=== PATIENT | female | born 1930 ===

== ENCOUNTER 2018-02-20 12:23 | Inpatient (IN) | payer SELFPAY ==
[2018-02-20] MEDS ORDERED: Lidocaine 1% w/Epinephrine 1:100K 20 ML VIAL ONE (12:27)
[2018-02-20 12:57] LABS: #Lymphocytes 0.9 thou/uL (1.20-3.40); #Monocytes 0.3 thou/uL (0.11-0.59); #Neutrophils 4.6 thou/uL (1.40-6.50); %Basophils 0.6 % (0.0-1.0); %Eosinophils 0.4 % (0.0-10.0); %Lymphocytes 15.8 % (21.0-51.0); %Monocytes 4.9 % (0.0-10.0); %Neutrophils 78.3 % (42.0-75.0); Hemoglobin 9.6 g/dL (12.0-16.0); Mean Corpuscular HGB CONC 32.2 g/dL (32.0-36.0); Mean Corpuscular Hemoglobin 29.3 pg (27.0-31.0); Mean Corpuscular Volume 91.2 fL (78.0-98.0); Mean Platelet Volume 7.1 fL (7.4-10.4); Platelet Count 294 thou/uL (130-400); RBC Distribution Width 16.2 % (11.5-14.5); Red Blood Cell (RBC) Count 3.27 mill/uL (4.20-5.40); White Blood Cell (WBC) Count 5.8 thou/uL (4.8-10.8)
[2018-02-20 12:58] LABS: INR-International Normal Ratio 3.9; Prothrombin Time 37.8 SEC (12.0-14.7)
[2018-02-20 13:05] LABS: ALT (SGPT) 14 U/L (8-55); AST (SGOT) 15 U/L (5-34); Albumin 3.9 g/dL (3.4-4.8); Alkaline Phosphatase 63 U/L (40-150); Anion Gap 14 mmol/L (10-20); BUN (Urea Nitrogen) 22 mg/dL (9.8-20.1); Bilirubin, Total 0.7 mg/dL (0.2-1.2); Calc. Creatinine Clearance 0 mL/min (70-130); Calcium 9.4 mg/dL (7.8-10.44); Carbon Dioxide 19 mmol/L (23-31); Chloride 108 mmol/L (98-107); Estimated GFR-MDRD 29; Globulin 2.7 g/dL (2.4-3.5); Glucose 151 mg/dL (83-110); Protein, Total 6.6 g/dL (6.0-8.3); Sodium 137 mmol/L (136-145)
--- NOTE | 2018-02-20 13:30 | RAD ---
AP PELVIS: Date: 02/20/18 HISTORY: Trauma. Pelvic pain, hip pain. FINDINGS/IMPRESSION: No definite fracture or dislocation is seen. Soft tissue calcifications are noted. IF there is high clinical suspicion for fracture, further evaluation with CT scan should be performed . POS: [facility]
--- NOTE | 2018-02-20 13:31 | RAD ---
PORTABLE CHEST 1 VIEW: Date: 02/20/18 Time: 1157 hours HISTORY: Trauma, chest pain. FINDINGS: The heart is enlarged. Aorta is tortuous. Left-sided pacemaker device is present. The lungs are well expanded without lobar consolidation, pneumothoraces, sylvia pulmonary edema, or pleural effusions. IMPRESSION: Cardiomegaly. POS: [facility]
--- NOTE | 2018-02-20 13:53 | CT ---
CT BRAIN WITHOUT CONTRAST: Date: 02/20/18 HISTORY: Level I trauma, unwitnessed fall, large head laceration. FINDINGS: There are changes of cortical atrophy and chronic small vessel ischemic disease. There is asymmetric prominent dilatation of the left lateral ventricle, particularly the occipital horn, likely due to ad jacent cortical volume loss. No evidence of acute infarct, hemorrhage, midline shift, or abnormal ext ra-axial fluid collections are seen. The bony calvarium is intact. There is a scalp contusion in the right frontal region. IMPRESSION: No CT evidence of acute intracranial process. Report called over the telephone to ER physician, Dr. Jameson Nath, at 1311 hours. CODE CR. POS: [facility]
--- NOTE | 2018-02-20 13:56 | CT ---
CT CERVICAL SPINE WITH CORONAL AND SAGITTAL REFORMATIONS: Date: 02/20/18 HISTORY: Level I trauma, unwitnessed fall, neck pain. FINDINGS: Extensive degenerative changes are seen in the cervical spine. There is loss of cervical lordosis. No acute fracture is seen. There is minimal anterolisthesis of C4 over C5, likely degenerative. No face t malalignment is identified. There is mild anterior wedging of the superior end plate of T1 vertebral body. Findings discussed over the telephone with ER physician, Dr. Jameson Nath, at 1317 hours. CODE CR. POS: [facility]
--- NOTE | 2018-02-20 15:31 | PDOC.FPRHP ---
- History of Present Illness Chief Complaint: fall History of Present Illness: 87 yo AAF with unknown PMH presents after a reported ground level fall while at home earlier today. There is no family at bedside during interview. Pt reports that she lives at home in [place], [place], with her daughter and was standing around her kitchen today when she fell and hit her head. She denies LOC but is unsure what caused her to fall. She states her nephew was home at the time and immediately rushed to help her up and hold pressure to her head. EMS was called and eventually the pt was sent via [facility] to higher level of care. Per EMS report, pt had significant laceration to right frontotemporal scalp with unspecified amount of blood at the scene. EMS also reports some type of apneic or seizure like activity while in flight nearly requiring intubation. The patient, however, reportedly became coherent and back to baseline just prior to intubation. The patient denies any complaints or concerns and specifically denies recent fevers/chills, BINGHAM, dizziness, weakness, change in vision, cough, SOB, CP, palpitations, or NVD. Her only complaint is that she has fungus on her feet. On arrival to the ED, level 1 trauma was activated. ED Course: Level 1 trauma was activated and pt was evaluated by Dr. Nath. CT cervical spine, CT brain, pelvis XR, and CXR were all negative for acute findings. The patient was given 2 L of NS and Tdap. - Allergies/Adverse Reactions Allergies Allergy/AdvReac Type Severity Reaction Status Date / Time No Allergy Information Allergy Unverified 02/20/18 15:33 Available - Home Medications Medication Instructions Recorded Confirmed Type Unobtainable [Unobtainable] 02/20/18 02/20/18 History Comments: Pt is unable to recall her medications at this time and no family is at bedside. - History PMHx: Unknown. Pt has Pacemaker. PSHx: Unknown, pacemaker placement FHx: Unknown Social: Pt is and lives at home with her daughter in [place], [place]. - Review of Systems General: denies: fever/chills Eyes: denies: vision changes Respiratory: denies: cough, shortness of breath Cardiovascular: denies: chest pain, palpitation Gastrointestinal: denies: nausea, vomiting, diarrhea Skin: reports: other (foot fungus) Musculoskeletal: denies: pain Neurological: denies: syncope, weakness - Vital signs BP: 112/71 HR: 74 paced RR: 20 Tmax: 98.6 oral Pox: 100% on 2L NC Wt: 64kg - Physical Exam Constitutional: NAD, other (A&O x1-2 during interview) HEENT: PERRLA, EOMI, conjunctiva clear, no scleral icterus, other (3x3cm area of ecchymosis s/p lac repair on right frontotemporal scalp) Neck: no bruits Chest: no-tender to palpation Heart: RRR, normal S1/S2 Lungs: CTAB, no respiratory distress, no wheezing Abdomen: soft, non-tender Musculoskeletal: normal structure Neurological: no focal deficit, CN II-XII intact, other (presbycusis) Skin: capillary refill <2 seconds, other (tinea pedis) Heme/Lymphatic: other (frontotemporal ecchymosis) FMR H&P: Results - Labs Result Diagrams: 02/20/18 12:45 02/20/18 12:45 Lab results: WBC 5.8 thou/uL (4.8-10.8) 02/20/18 12:45 Hgb 9.6 g/dL (12.0-16.0) L 02/20/18 12:45 Hct 29.9 % (36.0-47.0) L 02/20/18 12:45 MCV 91.2 fL (78.0-98.0) 02/20/18 12:45 Plt Count 294 thou/uL (130-400) 02/20/18 12:45 Neutrophils % 78.3 % (42.0-75.0) H 02/20/18 12:45 Sodium 137 mmol/L (136-145) 02/20/18 12:45 Potassium 4.0 mmol/L (3.5-5.1) 02/20/18 12:45 Chloride 108 mmol/L (98-107) H 02/20/18 12:45 Carbon Dioxide 19 mmol/L (23-31) L 02/20/18 12:45 BUN 22 mg/dL (9.8-20.1) H 02/20/18 12:45 Creatinine 1.65 mg/dL (0.6-1.1) H 02/20/18 12:45 Glucose 151 mg/dL (83-110) H 02/20/18 12:45 Lactic Acid 2.5 mmol/L (0.5-2.2) H 02/20/18 12:45 Calcium 9.4 mg/dL (7.8-10.44) 02/20/18 12:45 Total Bilirubin 0.7 mg/dL (0.2-1.2) 02/20/18 12:45 AST 15 U/L (5-34) 02/20/18 12:45 ALT 14 U/L (8-55) 02/20/18 12:45 Alkaline Phosphatase 63 U/L (40-150) 02/20/18 12:45 Serum Total Protein 6.6 g/dL (6.0-8.3) 02/20/18 12:45 Albumin 3.9 g/dL (3.4-4.8) 02/20/18 12:45 - EKG Interpretation EKG: Electronically paced, rate 71. No ST changes. QT 440. - Radiology Interpretation CT scan - head Status: report reviewed by me (No acute process. Chronic atrophy and microvascular changes.) Chest x-ray Status: image reviewed by me, report reviewed by me Additional comment: No acute process. Other Status: report reviewed by me Additional comment: CT C spine and pelvis XR negative for acute fracture. FMR H&P: A/P - Problem List (1) Normocytic anemia due to blood loss Current Visit: Yes Status: Acute Code(s): D50.0 - IRON DEFICIENCY ANEMIA SECONDARY TO BLOOD LOSS (CHRONIC) (2) Hypotension due to blood loss Current Visit: Yes Status: Acute Code(s): I95.89 - OTHER HYPOTENSION (3) Supratherapeutic INR Current Visit: Yes Status: Acute Code(s): R79.1 - ABNORMAL COAGULATION PROFILE (4) Superficial laceration of scalp Current Visit: Yes Status: Acute Code(s): S01.01XA - LACERATION WITHOUT FOREIGN BODY OF SCALP, INITIAL ENCOUNTER (5) Kidney injury Current Visit: Yes Status: Acute Code(s): S37.009A - UNSPECIFIED INJURY OF UNSPECIFIED KIDNEY, INITIAL ENCOUNTER (6) Hyperchloremic metabolic acidosis Current Visit: Yes Status: Acute Code(s): E87.2 - ACIDOSIS (7) Tinea pedis Current Visit: Yes Status: Acute Code(s): B35.3 - TINEA PEDIS (8) Pacemaker Current Visit: Yes Status: Acute Code(s): Z95.0 - PRESENCE OF CARDIAC PACEMAKER - Plan 1. Normocytic blood loss anemia 2/2 unwitnessed ground level fall and frontotemporal scalp laceration - No family at bedside at the time of exam but patient reports no LOC with ground level fall. Pt had superficial laceration repair in ED with adequate hemostasis. Trauma work up negative but patient found to have hemoglobin of 9.6. With unclear PMH and no previous hospitalizations or lab work for reference , will treat patient as blood loss anemia. - Obtain repeat H/H in 4 hours and closely monitor vital signs. Patient has been hypoTN, as low as 80/60, but currently resolved. Patient is s/p [address] on maintenance fluids with LR @ 100. Patient has been type and screened. Consider transfusion if patient bleeds or deteriorates. - Hold anticoagulation and repeat coagulation panel in AM. - Patient's history is unknown at this time but, per ER staff, family to return to hospital. No phone number available at time of interview. 2. HypoTN likely secondary to #1 - Resolved at this time, continue to monitor with maintenance fluids. 3. Supratherapeutic INR - Hold anticoagulation and monitor INR. Consider administration of vitamin K if patient worsens. 4. CASSY vs CKD - Unclear baseline. IVF. Repeat BMP in AM. 5. Hyperchloremic non-anion gap metabolic acidosis - Switch IVF to LR. 6. Tinea pedis - Topical ketoconazole. 7. Pacemaker in place. CODE STATUS: DNI. PPx: SCDs for VTE. No GI ppx indicated at this time. Disposition/LOS: Admit to [facility] under inpatient status for anticipated length of stay >2 midnights.
--- NOTE | 2018-02-20 16:15 | HP ---
HISTORY OF PRESENT ILLNESS: I have examined the patient. I have discussed the case with Dr. Brooks colvin and agree with his assessment and plan. Briefly, Ms. Samson is a pleasant, elderly, 87-year-old black female patient, who arrived to our ER approximately 2 hours ago. Evidently, she had fallen at home and struck her right yarsani. There wa s no loss of consciousness according to the patient and no syncope. She, however, bled profusely at the scene of the accident. She was subsequently transferred from [place], [place], to [facility]. She has had a head and neck CT and no evidence of intracranial bleed or neck fracture. PHYSICAL EXAMINATION: GENERAL: The patient, on my exam, is awake, alert, though confused. She does refer appropriately to the year is 2017 and she does know her name. She, however, does not know where she is and that she states she is in [place], [place]. HEENT: Head: There is a sutured laceration of the right yarsani. It measures approximately 2 cm. I t is oozing, but not bleeding profusely. There is not a large hematoma overlying the area. Her extr aocular movements are normal. Her pupils are round and reactive to light. Her conjunctivae are pale . Throat: No erythema or exudate. NECK: Supple. CARDIAC: The PMI is displaced laterally. Heart sounds are distant. LUNGS: Breath sounds are distant, but clear. No rales, rhonchi, or wheezes. She is in no respirato ry distress. ABDOMEN: Flat and soft. She seems to be able to move all extremities without any evidence of focal deficits. LABORATORY STUDIES: Pending. ASSESSMENT: Fall with head trauma and laceration. COMMENT: She was noted to have an elevated PT/INR on admission. Unfortunately, she does not know an d we do not know what medication she is taking. In the event, the bleeding from her scalp laceration seems to be controlled and there is at least at this time no indication for a vitamin K or fresh fro willie plasma. This situation will be monitored, of course, closely with serial H and Hs every 4 hours over the next several hours. She had initially become hypotensive in the ER, but responded well to b olus of fluids and her current systolic blood pressure is 110. PLAN: Admit to MICU. Monitor serial H and Hs. Monitor vital signs and volume status. Give FFP and vitamin K or 4-factor PCC if bleeding profusely reemergence.
[2018-02-20 16:35] LABS: Hemoglobin 7.7 g/dL (12.0-16.0)
[2018-02-20 16:50] LABS: Lactic Acid 1.4 mmol/L (0.5-2.2)
[2018-02-20] MEDS ORDERED: Ondansetron ODT 4 MG TAB PO PRN (17:15)
[2018-02-20 18:21] VITALS: BMI 22.2
[2018-02-20] MEDS: Acetaminophen 325 MG TAB PO PRN (19:22)
[2018-02-20] MEDS: Lactated Ringer's 1,000 ML IV SCH (19:22)
[2018-02-20 20:30] LABS: Hemoglobin 7.6 g/dL (12.0-16.0)
--- NOTE | 2018-02-20 23:04 | HP ---
HISTORY OF PRESENT ILLNESS: Amrita Samson is an 87-year-old female, who was flown [facility] as a l evel 1 trauma patient. I respond to a level 1 trauma activation providing critical care for the [facility] room stay. On arrival, by report, the patient was hypotensive, bleeding from a scalp laceratio n, intubated. On arrival, the patient was not intubated. The patient was mentating normally, talkin g normally, blood pressure was 100. En route, her blood pressure was reported to be in the 80s, and she was given TXA. On arrival, she had humerus. IV access could not be established, but as stated a negrito, the patient was alert and oriented. GCS 15. Mentating normally. Following commands. [facility] and blood pressure was intermittently systolic 90 to 100. PHYSICAL EXAMINATION: LUNGS: Clear to auscultation. CARDIAC: Regular rate and rhythm without murmur or gallop. ABDOMEN: Soft, nontender. PELVIS: Stable. EXTREMITIES: Mobile hips, knees, and ankles without deformity or pain. Palpable pedal pulses. No a nkle edema. Upper extremities are mobile without evidence of trauma. CHEST: Chest wall without trauma. NECK: Cervical spine collar in place. Cervical spine, nontender. Trachea midline. NEUROLOGIC: Cranial nerves II-XII intact, neurologically intact. No focal deficit. HEENT: Pupils equally round, and reactive to light. LABORATORY DATA AND X-RAY FINDINGS: Chest x-ray was done, it was normal. EKG done, normal. CT scan of the head and neck were normal. X-ray of her pelvis was normal. The patient had on exam a lacera tion of her right forehead with a small arterial bleeder. This laceration was irregular and about 3 cm. Betadine prep was used, and one of the physicians closed this under local anesthetic after Betad ine prep. White count 5, hemoglobin 9.6. Sodium 137, potassium 4.0, chloride 108, carbon dioxide 19 , BUN 22, creatinine 1.65. No other studies to compare to. ALLERGIES: None. TOBACCO: None. ALCOHOL: None. HOME MEDICATIONS: Not available. The patient gives a history of having had a seizure years past, but she cannot recall when. Patient has a pacemaker in left chest. PT is 37. INR 3.9. ASSESSMENT AND PLAN: 1. Acute kidney injury versus chronic kidney disease. 2. Coronary artery disease with pacemaker, history unknown at this time. 3. Patient fell at home in her kitchen and is not amnestic for the event and has a laceration over h er forehead. Her hemoglobin is 9 without records of prior hemoglobin. The patient is stable from a trauma standpoint, no evident traumatic injury. Patient can be admitted to the Medical Service for e valuation. 4. INR elevated. Medication list not available, but suppose that she is on Coumadin treatment per m edical. A 35 minutes spent with this patient with acute care, and Medical Service will assume her care.
[2018-02-21 04:46] LABS: #Eosinphils 0.1 thou/uL (0.0-0.7); #Lymphocytes 1.5 thou/uL (1.20-3.40); #Monocytes 0.7 thou/uL (0.11-0.59); #Neutrophils 4.2 thou/uL (1.40-6.50); %Basophils 0.1 % (0.0-1.0); %Lymphocytes 23.4 % (21.0-51.0); %Neutrophils 65.5 % (42.0-75.0); Hemoglobin 7.8 g/dL (12.0-16.0); Mean Corpuscular HGB CONC 32.9 g/dL (32.0-36.0); Mean Corpuscular Volume 91.1 fL (78.0-98.0); Platelet Count 257 thou/uL (130-400); RBC Distribution Width 15.8 % (11.5-14.5); Red Blood Cell (RBC) Count 2.59 mill/uL (4.20-5.40); White Blood Cell (WBC) Count 6.4 thou/uL (4.8-10.8)
[2018-02-21 04:51] LABS: INR-International Normal Ratio 1.7; Prothrombin Time 20.4 SEC (12.0-14.7)
[2018-02-21 04:52] LABS: PTT 41.7 SEC (22.9-36.1)
[2018-02-21 05:07] LABS: Anion Gap 13 mmol/L (10-20); BUN (Urea Nitrogen) 16 mg/dL (9.8-20.1); Calc. Creatinine Clearance 40 mL/min (70-130); Calcium 8.9 mg/dL (7.8-10.44); Carbon Dioxide 19 mmol/L (23-31); Chloride 113 mmol/L (98-107); Estimated GFR-MDRD 57; Glucose 98 mg/dL (83-110); Potassium 3.7 mmol/L (3.5-5.1); Sodium 141 mmol/L (136-145)
[2018-02-21] MEDS: Lactated Ringer's 1,000 ML IV SCH (05:35)
--- NOTE | 2018-02-21 06:22 | PDOC.FM ---
- Subjective Subjective: 87 yo female seen this AM. Patient is A&O x4 and pleasant. Family is not present at time of interview. She states that she remembers she fell yesterday. She states that her head is sore over her laceration repair. She denies any chest pain, sob, vision changes, unilateral weakness, n/v/d, fevers, chills, or coughs. She states that she has no problems. No other complaints today. - Objective Vital Signs & Weight: Vital Signs (12 hours) Temp Pulse Resp BP Pulse Ox 02/21/18 03:00 98.0 F 76 18 166/69 H 100 02/20/18 23:00 98.2 F 72 18 160/70 H 98 02/20/18 20:00 98.0 F 70 18 95 02/20/18 19:00 98.0 F 70 18 139/58 L 95 Weight Weight 60.47 kg I&O: 02/19/18 02/20/18 02/21/18 06:59 06:59 06:59 Intake Total 1440 Output Total 625 Balance 815 Result Diagrams: 02/21/18 03:52 02/21/18 03:52 <Joel Rodriguez - Last Filed: 02/21/18 08:34> - Objective Vital Signs & Weight: Vital Signs (12 hours) Temp Pulse Pulse Pulse Resp BP BP 02/21/18 13:21 74 80 153/60 H 02/21/18 11:15 99.0 F 70 18 02/21/18 09:16 70 162/67 H 02/21/18 08:00 98.8 F 70 17 02/21/18 07:34 98.8 F 70 17 BP BP Pulse Ox Pulse Ox Pulse Ox 02/21/18 13:21 163/71 H 95 95 02/21/18 11:15 133/67 93 L 02/21/18 09:16 02/21/18 08:00 02/21/18 07:34 167/79 H 96 Weight Weight 60.47 kg I&O: 02/20/18 02/21/18 02/22/18 06:59 06:59 06:59 Intake Total 1440 Output Total 625 Balance 815 Result Diagrams: 02/21/18 03:52 02/21/18 03:52 <Luda Lee - Last Filed: 02/21/18 17:02> Phys Exam - Physical Examination Constitutional: NAD HEENT: PERRLA Laceration repair to Right frontal area Neck: no nodes Respiratory: no wheezing, clear to auscultation bilateral Cardiovascular: RRR, no significant murmur Gastrointestinal: soft, non-tender, no distention, positive bowel sounds Musculoskeletal: no edema, pulses present Neurological: non-focal, normal sensation, moves all 4 limbs Lymphatic: no nodes Psychiatric: normal affect, A&O x 3 Skin: no rash <Joel Rodriguez - Last Filed: 02/21/18 08:34> Dx/Plan (1) Normocytic anemia due to blood loss Code(s): D50.0 - IRON DEFICIENCY ANEMIA SECONDARY TO BLOOD LOSS (CHRONIC) Status: Acute (2) Supratherapeutic INR Code(s): R79.1 - ABNORMAL COAGULATION PROFILE Status: Acute (3) Fall from ground level Code(s): W18.30XA - FALL ON SAME LEVEL, UNSPECIFIED, INITIAL ENCOUNTER Status : Acute (4) Hyperchloremic metabolic acidosis Code(s): E87.2 - ACIDOSIS Status: Acute (5) Hypotension due to blood loss Code(s): I95.89 - OTHER HYPOTENSION Status: Resolved (6) Hypertension Code(s): I10 - ESSENTIAL (PRIMARY) HYPERTENSION Status: Chronic (7) Kidney injury Code(s): S37.009A - UNSPECIFIED INJURY OF UNSPECIFIED KIDNEY, INITIAL ENCOUNTER Status: Acute (8) Pacemaker Code(s): Z95.0 - PRESENCE OF CARDIAC PACEMAKER Status: Acute (9) Superficial laceration of scalp Code(s): S01.01XA - LACERATION WITHOUT FOREIGN BODY OF SCALP, INITIAL ENCOUNTER Status: Acute (10) Tinea pedis Code(s): B35.3 - TINEA PEDIS Status: Acute - Plan Plan: 1. Normocytic blood loss anemia 2/2 unwitnessed ground level fall and frontotemporal scalp laceration - No LOC with ground level fall. - Pt had superficial laceration repair in ED with adequate hemostasis. - Hgb this AM 7.8, likely dilution following fluid resuscitation - No longer hypotensive - Hold anticoagulation at this time - Patient's history is unknown at this time - Will contact patient's family for further management. 2. HypoTN likely secondary to #1 - Resolved at this time - Continue to monitor - BP running in 160-170s systolic, will restart home regimen today. 3. Supratherapeutic INR - Patient not on Warfarin at home, unclear of lab evaluation - Patient on home Xarelto held at this time. 4. CASSY - Improved today - IVF discontinued 5. Hyperchloremic non-anion gap metabolic acidosis - Chloride elevated today - IVF discontinued - Monitor with BMP 6. Tinea pedis - Topical ketoconazole. 7. Pacemaker in place. - HR A-paced, V-sensed in 70s overnight. Disposition: Stable, will transfer to Telemetry today and gather more history. <Joel Rodriguez - Last Filed: 02/21/18 08:34> Attending Addendum - Attending Addendum Date/Time: 02/21/18 1701 I personally evaluated the patient and discussed the management with Dr. Rodriguez. I agree with the History, Examination, Assessment and Plan documented above with any addition or exceptions noted below. The patient's hemoglobin has dropped though this is likely dilutional after the fluids she received. Will transfer to tele. She is feeling better. Will get PT to eval and interrogate pacemaker. <Luda Lee - Last Filed: 02/21/18 17:02>
[2018-02-21] MEDS ORDERED: Prevnar 13-Val Conj/PF 0.5 ML SYRINGE IM ONE (09:00)
[2018-02-21] MEDS: Furosemide 20 MG TAB PO SCH (09:16)
[2018-02-21] MEDS: Ketoconazole 2% Cream 15 gm Tube TOP SCH (09:16)
[2018-02-21] MEDS: Amlodipine 5 MG TAB PO SCH (09:16)
[2018-02-21] MEDS: Labetalol 100 MG TAB PO SCH ×2 (09:16→21:08)
[2018-02-21] MEDS ORDERED: Levothyroxine Sodium 88 MCG TAB PO SCH (11:00)
[2018-02-21] MEDS ORDERED: Simvastatin 5 MG TAB PO SCH (21:00)
[2018-02-21] MEDS: Acetaminophen 325 MG TAB PO PRN (21:38)
[2018-02-22 05:14] LABS: Anion Gap 14 mmol/L (10-20); BUN (Urea Nitrogen) 10 mg/dL (9.8-20.1); Calc. Creatinine Clearance 42 mL/min (70-130); Calcium 8.7 mg/dL (7.8-10.44); Carbon Dioxide 21 mmol/L (23-31); Chloride 109 mmol/L (98-107); Estimated GFR-MDRD 61; Glucose 101 mg/dL (83-110); Potassium 3.5 mmol/L (3.5-5.1); Sodium 140 mmol/L (136-145)
[2018-02-22] MEDS ORDERED: Levothyroxine Sodium 88 MCG TAB PO SCH (06:00)
--- NOTE | 2018-02-22 06:20 | PDOC.FM ---
- Subjective Subjective: 87 yo female seen this AM. Patient has no complaints. She had a good night and is wanting to be discharged home. - Objective Vital Signs & Weight: Vital Signs (12 hours) Temp Pulse Resp BP BP Pulse Ox 02/22/18 04:00 98.7 F 76 18 170/66 H 98 02/22/18 01:00 98.5 F 70 18 137/60 99 02/21/18 21:08 76 160/64 H 02/21/18 19:07 98.6 F 70 18 100 02/21/18 19:00 98.6 F 70 18 158/55 H 100 Weight Weight 60.47 kg I&O: 02/20/18 02/21/18 02/22/18 06:59 06:59 06:59 Intake Total 1440 980 Output Total 625 1050 Balance 815 -70 Result Diagrams: 02/21/18 03:52 02/22/18 03:40 <Joel Rodriguez - Last Filed: 02/22/18 08:16> - Objective Vital Signs & Weight: Vital Signs (12 hours) Temp Pulse Pulse Pulse Resp BP BP 02/22/18 11:25 98.6 F 70 16 02/22/18 10:42 70 70 166/70 H 02/22/18 10:18 71 164/68 H 02/22/18 10:10 02/22/18 08:00 98.4 F 71 18 02/22/18 07:32 98.4 F 71 18 02/22/18 07:25 140/53 L BP BP Pulse Ox Pulse Ox Pulse Ox 02/22/18 11:25 160/75 H 96 02/22/18 10:42 139/61 96 98 02/22/18 10:18 02/22/18 10:10 97 02/22/18 08:00 02/22/18 07:32 162/72 H 99 02/22/18 07:25 162/72 H Weight Weight 59.012 kg I&O: 02/21/18 02/22/18 02/23/18 06:59 06:59 06:59 Intake Total 1440 1390 Output Total 625 2000 Balance 815 -610 Result Diagrams: 02/21/18 03:52 02/22/18 03:40 <Luda Lee - Last Filed: 02/22/18 16:05> Phys Exam - Physical Examination Constitutional: NAD HEENT: PERRLA, moist MMs Laceration repair to Right frontal area Neck: no nodes Respiratory: no wheezing, clear to auscultation bilateral Cardiovascular: RRR, no significant murmur Gastrointestinal: soft, non-tender, no distention, positive bowel sounds Musculoskeletal: no edema, pulses present Neurological: non-focal, normal sensation, moves all 4 limbs Lymphatic: no nodes Psychiatric: normal affect, A&O x 3 Skin: no rash <Joel Rodriguez - Last Filed: 02/22/18 08:16> Dx/Plan (1) Normocytic anemia due to blood loss Code(s): D50.0 - IRON DEFICIENCY ANEMIA SECONDARY TO BLOOD LOSS (CHRONIC) Status: Acute (2) Supratherapeutic INR Code(s): R79.1 - ABNORMAL COAGULATION PROFILE Status: Resolved (3) Fall from ground level Code(s): W18.30XA - FALL ON SAME LEVEL, UNSPECIFIED, INITIAL ENCOUNTER Status : Acute (4) Hyperchloremic metabolic acidosis Code(s): E87.2 - ACIDOSIS Status: Acute (5) Hypotension due to blood loss Code(s): I95.89 - OTHER HYPOTENSION Status: Resolved (6) Hypertension Code(s): I10 - ESSENTIAL (PRIMARY) HYPERTENSION Status: Chronic (7) Kidney injury Code(s): S37.009A - UNSPECIFIED INJURY OF UNSPECIFIED KIDNEY, INITIAL ENCOUNTER Status: Acute (8) Pacemaker Code(s): Z95.0 - PRESENCE OF CARDIAC PACEMAKER Status: Acute (9) Superficial laceration of scalp Code(s): S01.01XA - LACERATION WITHOUT FOREIGN BODY OF SCALP, INITIAL ENCOUNTER Status: Acute (10) Tinea pedis Code(s): B35.3 - TINEA PEDIS Status: Acute - Plan Plan: 1. Normocytic blood loss anemia 2/2 unwitnessed ground level fall and frontotemporal scalp laceration - No LOC with ground level fall. - Pt had superficial laceration repair in ED with adequate hemostasis. - Hgb this AM 7.8, likely dilution following fluid resuscitation - No longer hypotensive - Hold anticoagulation at this time - History of A-fib s/p pacemaker, HTN, HLD, Hx of CVA 2. HypoTN likely secondary to #1 - Resolved at this time - Continue to monitor - BP running in 160-170s systolic, will restart home regimen today. 3. Supratherapeutic INR - Patient not on Warfarin at home, unclear of lab evaluation - Patient on home Xarelto held at this time. 4. CASSY - Improved today - IVF discontinued 5. Hyperchloremic non-anion gap metabolic acidosis - Improved today - Likely need outpatient follow up for this 6. Tinea pedis - Topical ketoconazole. 7. Pacemaker in place. - HR A-paced, V-sensed in 70s overnight. - Pacemaker interrogated 02/21 showed no events. Disposition: Stable, Patient ready for discharge today. <Joel Rodriguez - Last Filed: 02/22/18 08:16> Attending Addendum - Attending Addendum Date/Time: 02/22/18 5069 I personally evaluated the patient and discussed the management with Dr. Rodriguez. I agree with the History, Examination, Assessment and Plan documented above with any addition or exceptions noted below. The patient is doing well this morning. She was cleared by therapy. No new bleeding. Will discharge home. <Luda Lee - Last Filed: 02/22/18 16:05>
[2018-02-22] MEDS: Amlodipine 5 MG TAB PO SCH (10:18)
[2018-02-22] MEDS: Labetalol 100 MG TAB PO SCH (10:18)
[2018-02-22] MEDS: Furosemide 20 MG TAB PO SCH (10:18)
[2018-02-22] MEDS: Ketoconazole 2% Cream 15 gm Tube TOP SCH (10:20)
[2018-02-22 11:27] VITALS: TEMP 98.6
--- NOTE | 2018-02-22 11:57 | DIS-2 ---
DATE OF ADMISSION: 02/20/2018 DATE OF DISCHARGE: 02/22/2018 RESIDENT: Dr. Joel Rodriguez ADMITTING ATTENDING: Dr. Lamont Aguila DISCHARGE ATTENDING: Dr. Luda Lee CONSULTATIONS: OT evaluation and treatment, PT evaluation and treatment. PROCEDURES: 1. On 02/20/2018 the patient underwent a cervical spine CT that showed extensive degenerative change s seen in the cervical spine. There is loss of cervical lordosis. No acute fracture seen. There is minimal anterolisthesis of C4 over C5, likely degenerative. No passive malalignment is identified. There was mild anterior wedging of the superior endplate of the T1 vertebral body. 2. 02/20/2018 - The patient underwent a pelvis x-ray that showed no definite fracture or dislocation seen. Soft tissue calcifications are noted. 3. 02/20/2018 - The patient underwent a brain CT that showed no CT evidence of acute intracranial pr ocess. 4. 02/20/2018 - The patient underwent a chest x-ray that showed cardiomegaly. PRIMARY DISCHARGE DIAGNOSES: 1. Normocytic anemia due to blood loss. 2. Supratherapeutic INR. 3. Fall from ground level. 4. Hyperchloremic metabolic acidosis. 5. Hypotension due to blood loss. 6. Hypertension. 7. Acute kidney injury. 8. Pacemaker placement. 9. Superficial laceration of the scalp. 10. Tinea pedis. DISCHARGE MEDICATIONS: 1. Pravastatin 20 mg p.o. at bedtime. 2. Levothyroxine 88 mcg p.o. daily. 3. Furosemide 20 mg p.o. daily. 4. Amlodipine 2.5 mg p.o. daily. 5. Labetalol 100 mg p.o. b.i.d. 6. Isosorbide mononitrate 10 mg. 7. Ketoconazole 2% cream topical applied daily. DISCONTINUED MEDICATIONS: Xarelto 15 mg p.o. q.p.m. with meals. HISTORY OF PRESENT ILLNESS AND HOSPITAL COURSE: An 87-year-old female with unknown past medical history who presented after a reported ground level fall at home earlier today. The pat ient lives at home in [place], [place] with a daughter. She was standing in her kitchen. She went to sit down, missed her chair and hit her head. The patient denies any loss of consciousness, but was confused about the details of her fall. Per the EMS report, the patient had a significant laceration to the right frontotemporal scalp with unspecified amount of blood at the scene. EMS also reports a n apneic or seizure-like activity while in flight, nearly requiring intubation; however, became coher ent and back to baseline just prior to intubation. The patient denied any other complaints in the ED . During this hospitalization, the patient was afebrile during the entire hospitalization, had a normal pulse rate as well as oxygen saturation that was appropriate on room air. The patient did have bord lia normotensive to hypertensive blood pressure. The patient was found to have a hemoglobin of 9. 6 on admission, down from unknown baseline that trended down to 7.6 after fluid resuscitation and saw that it stabilized and increased to 7.8 the day before discharge. The patient did have an INR of 3. 9 on day of admission that downtrend at 1.7 on 02/21/2018. The patient has never been on Coumadin in the recent past and so it is unknown why her INR was elevated at that time. No further workup was d one in the hospital; however, we do recommend a routine surveillance of that value as an outpatient. The patient did present to the ER with an acute kidney injury of a creatinine of 1.65, it down trend ed to 0.88 on day of discharge. The patient also had a chloride of 108 that trended up to 113, then decreased down to 109. Patient otherwise had no other laboratory abnormalities. The patient did not require any transfusions; however, she was adequately fluid resuscitated and became asymptomatic at that time. The patient was seen by Occupational Therapy. They recommended home with assistance and help and no further supportive measures would be needed. Otherwise, the patient tolerated the hospit alization well and had no other complications and was discharged in appropriate condition. DISPOSITION: Stable. DISCHARGE INSTRUCTIONS: 1. Location: She will be discharged home in the care of herself and her family. 2. Diet will be a heart healthy diet. 3. Activity will be as tolerated with no restrictions; however, with fall precautions. 4. Follow up will be with her PCP in [place], [place], to further discuss management of her chronic i llnesses as well as the risks, benefits of Xarelto treatment at this time.
[2018-02-22 12:05] VITALS: BP 166/70
--- NOTE | 2018-02-23 15:11 | EKG ---
Test Reason : Blood Pressure : / mmHG Vent. Rate : 071 BPM Atrial Rate : 071 BPM P-R Int : 190 ms QRS Dur : 076 ms QT Int : 440 ms P-R-T Axes : 000 006 108 degrees QTc Int : 478 ms Electronic atrial pacemaker Nonspecific T wave abnormality Prolonged QT Abnormal ECG Confirmed by ASHIA MEDELLIN D.O. ([id number]), photographic editor RACHAEL FERRELL ([id number]) on 02/23/2018 3:11:39 PM Referred By: Confirmed By:ASHIA MEDELLIN D.O.
== END 2018-02-22 15:43 | disposition home or self-care (01) | DRG 683 ==
LOC: ERS 12:23 → IMCU/EMU 14:28
PROVIDERS: ADMIT Family Medicine; ATTEND Family Medicine
DX: N17.9 Acute kidney failure, unspecified (principal); E87.2 Acidosis; D50.0 Iron deficiency anemia secondary to blood loss (chronic); I25.10 Atherosclerotic heart disease of native coronary artery without angina pectoris; I12.9 Hypertensive chronic kidney disease with stage 1 through stage 4 chronic kidney disease, or unspecified chronic kidney disease; N18.9 Chronic kidney disease, unspecified; S01.81XA Laceration without foreign body of other part of head, initial encounter; W19.XXXA Unspecified fall, initial encounter; B35.3 Tinea pedis; I95.9 Hypotension, unspecified; Z95.0 Presence of cardiac pacemaker
CPT/HCPCS: 36415; 70450; 71045; 72125; 72170; 80048; 80053; 82150; 83605; 85025; 85610; 85730; 86850; 86900; 86901; 90471; 90670; 93005; 94760; G0009; G0390; G8978-GP-CI; G8979-GP-CI; G8980-GP-CI; G8987-GO-CJ; G8988-GO-CH; J2001